=== PATIENT | male | born 1945 | race Caucasian/White ===

== ENCOUNTER 2022-12-02 10:50 | Outpatient (CLI) | payer MEDICARE ==
[2022-12-02 12:49] LABS: #Monocytes 1.1 10x3/uL (0.0-1.1); #Neutrophils 11.9 10x3/uL (1.5-8.4); %Basophils 0.1 % (0.0-2.0); %Lymphocytes 6.6 % (18.0-47.0); %Monocytes 7.6 % (0.0-10.0); %Neutrophils 85.3 % (40.0-75.0); Hemoglobin 14.6 g/dL (13.5-17.5); Mean Corpuscular HGB CONC 34.6 g/dL (32.0-36.0); Mean Corpuscular Hemoglobin 33.5 pg (27.0-33.0); Mean Corpuscular Volume 96.8 fl (81.2-95.1); Mean Platelet Volume 10.3 fl (7.4-10.4); Platelet Count 203 10x3/uL (150-450); RBC Distribution Width 13.2 % (11.5-14.5); Red Blood Cell (RBC) Count 4.36 10x6/uL (4.32-5.72); White Blood Cell (WBC) Count 13.9 10x3/uL (3.5-10.5)
[2022-12-02 13:33] LABS: Anion Gap 14 mmol/L (10-20); BUN (Urea Nitrogen) 26 mg/dL (8.4-25.7); Calc. Creatinine Clearance 0 mL/min (70-130); Calcium 9.8 mg/dL (7.8-10.44); Carbon Dioxide 25 mmol/L (23-31); Chloride 109 mmol/L (98-107); Estimated GFR 76; Glucose 114 mg/dL (83-110); Potassium 5.1 mmol/L (3.5-5.1); Sodium 143 mmol/L (136-145)
== END 2022-12-02 10:51 | disposition home or self-care (01) ==
LOC: LABBT 10:50
PROVIDERS: ATTEND Specialist
DX: Z01.818 Encounter for other preprocedural examination (principal); C02.9 Malignant neoplasm of tongue, unspecified
CPT/HCPCS: 71046; 80048; 85025; 93005; 93010

== ENCOUNTER 2022-12-06 09:46 | Day surgery (SDC) | payer MEDICARE ==
[2022-12-06] MEDS ORDERED: Acetaminophen 500 MG TAB ONE (10:38)
[2022-12-06] MEDS ORDERED: Lidocaine 1% (PF) 30 ML VIAL ONE (12:27)
[2022-12-06] MEDS ORDERED: Bupivacaine/Epinephrine 0.25% 30 ML VIAL ONE (12:27)
[2022-12-06] MEDS ORDERED: fentaNYL PF 100 MCG/2 ML SYRINGE ONE (12:31)
[2022-12-06] MEDS ORDERED: Propofol 500 MG/50 ML VIAL ONE (12:38)
[2022-12-06] MEDS ORDERED: CEFAZOLIN 2 GM VIAL ONE (12:40)
[2022-12-06] MEDS ORDERED: Sodium Chloride 0.9% 100 ML ONE (12:40)
[2022-12-06] MEDS ORDERED: Lidocaine 1% PF 5 ML VIAL ONE (12:50)
[2022-12-06] MEDS ORDERED: PROPOFOL 200 MG/20 ML VIAL ONE (12:50)
== END 2022-12-06 15:20 | disposition home or self-care (01) ==
LOC: SDC 09:46
PROVIDERS: ATTEND Specialist
PROC: 0JH60WZ Insertion of Totally Implantable Vascular Access Device into Chest Subcutaneous Tissue and Fascia, Open Approach (ICD-10-PCS; principal; 2022-12-06)
PROC: 02HV33Z Insertion of Infusion Device into Superior Vena Cava, Percutaneous Approach (ICD-10-PCS; 2022-12-06)
PROC: 0DH63UZ Insertion of Feeding Device into Stomach, Percutaneous Approach (ICD-10-PCS; 2022-12-06)
DX: C02.9 Malignant neoplasm of tongue, unspecified (principal); C77.0 Secondary and unspecified malignant neoplasm of lymph nodes of head, face and neck; Z87.891 Personal history of nicotine dependence
CPT/HCPCS: 36561; 43246; 71045; C1788; J1642; J2001; J2704; J3490